=== PATIENT | female | born 1945 | race Caucasian/White ===

== ENCOUNTER 2022-07-09 08:09 | Day surgery (SDC) | payer MEDICARE ==
[~2022-07-09 08:09] MED LIST: LACTATED RINGERS 1,000 ML IV SCH
[2022-07-09 08:49] LABS: Glucose,Whole Blood 81 mg/dL (70-110)
[2022-07-09 08:55] VITALS: TEMP 97.3
[2022-07-09] MEDS ORDERED: hydrALAZINE HCL 20 MG/ML 1 ML VIAL IVP ONE ×2 (08:58→08:59)
[2022-07-09] MEDS ORDERED: PROPOFOL 10 MG/ML 20 ML VIAL IV ONE (09:03)
[2022-07-09] MEDS ORDERED: LIDOCAINE 2% INJ 20 MG/ML (2 ML VIAL) ONE (09:03)
[2022-07-09] MEDS ORDERED: GLYCOPYRROLATE 0.2 MG/ML 2 ML VIAL ONE (09:03)
--- NOTE | 2022-07-09 09:29 | P.PCN ---
Date of Procedure: 07/09/22 Procedure(s) Performed: Brief history: Patient is a pleasant 77-year-old white female scheduled for an elective upper endoscopy as well as colonoscopy as a part of evaluation of Iron deficiency anemia and positive cologuard. She denies any abdominal pain, nausea vomiting. Complete of occasional constipation. No rectal bleeding or melena Procedure performed: Esophagogastroduodenoscopy biopsy Colonoscopy Preoperative diagnosis: Deficiency anemia/positive cologuard. Anesthesia: MAC Procedure: After informed consent was obtained from the patient was brought into the endoscopy unit and IV sedation was administered by anesthesia under continuous monitoring. Initially upper endoscopy was done. The Olympus GF 160 video endoscope was inserted inserted into the mouth and esophagus intubated without any difficulty and was gradually advanced into the stomach and duodenum and carefully examined. The bulb and second part of the duodenum appeared normal. Biopsies were done from the duodenum to rule out celiac disease. The scope was then withdrawn into the stomach adequately insufflated with air and upon careful examination the antrum had mild mottling of the mucosa and biopsies were done from this area. Mucosa of the body, cardia and fundus appeared normal. The scope was then withdrawn into the esophagus. The GE junction was located at 40 cm to the incisors. It appeared regular with no erythema erosions or ulcerations. Rest of the esophagus appeared normal. Patient tolerated the procedure well. At this time the patient continued to remain sedation. Initial digital rectal examination was normal. Olympus CF 160 video colonoscope was then inserted into the rectum and gradually advanced to the cecum without any difficulty. Careful examination was performed as the scope was gradually being withdrawn. The prep was excellent. The cecum appeared normal. In the ascending colon there was a 5 mm polyp that was removed by cold biopsy. Rest of the, ascending colon, transverse colon, descending colon, sigmoid colon and rectum appeared normal. Scattered left sided diverticulosis seen. Retroflexion was performed in the rectum and no lesions were noted. Patient tolerated the procedure well. Impression: 1. Upper endoscopy revealed mild antral gastritis but no evidence of esophagitis or peptic ulcer disease 2. Colonoscopy revealed a 5 mm ascending colon polyp status post cold biopsy and scattered diverticulosis Recommendations: Findings of this examination were discussed with the patient as well as her family. She was advised to follow with the biopsy results. If the biopsy reveals adenoma she can have a repeat colonoscopy in 5 years.
[2022-07-09 09:49] VITALS: RESP 16
[2022-07-09 10:13] VITALS: BP 129/73; PULSE 85
== END 2022-07-09 10:30 | disposition home or self-care (01) ==
LOC: ORWHC2ENDO 08:09
PROVIDERS: ATTEND Internal Medicine Gastroenterology
DX: K29.50 Unspecified chronic gastritis without bleeding (principal); D12.2 Benign neoplasm of ascending colon; K57.30 Diverticulosis of large intestine without perforation or abscess without bleeding; D64.9 Anemia, unspecified; I10 Essential (primary) hypertension; E78.5 Hyperlipidemia, unspecified; E11.9 Type 2 diabetes mellitus without complications; K21.9 Gastro-esophageal reflux disease without esophagitis; F41.9 Anxiety disorder, unspecified; Z79.84 Long term (current) use of oral hypoglycemic drugs; Z79.899 Other long term (current) drug therapy; Z90.710 Acquired absence of both cervix and uterus; Z98.890 Other specified postprocedural states
CPT/HCPCS: 88305; 45380; 43239; J0360; J2704; J2001

== ENCOUNTER → 2024-05-30 | Outpatient (CLI) | payer MEDICARE ==
--- NOTE | 2024-05-30 15:04 | BD ---
EXAMINATION TYPE: Axial Bone Density DATE OF EXAM: 05/30/2024 CLINICAL HISTORY: 79 years old Female. ICD-10 CODE: M81.0 Osteoporosis , Additional History: Height: 60 Weight: 140 FRAX RISK QUESTIONS: Secondary Osteoporosis: yes 3. Menopause before 45: yes, before 46 Current Tobacco Use: yes recently RISK FACTORS HISTORY OF: anxiety, diabetes, reflux MEDICATIONS: bp meds, vit d, metformin, xanax prn, Zetia, reflux meds, EXAM MEASUREMENTS: Bone mineral densitometry was performed using the [employer]. Bone mineral density as measured about the Lumbar spine is: ----- L1-L4(G/cm2): 1.406 T Score Values are as follows: ----- L1: 1.6 ----- L2: 1.5 ----- L3: 2.0 ----- L4: 2.2 ----- L1-L4: 1.9 Z Score Values are as follows: ----- L1: 3.4 ----- L2: 3.4 ----- L3: 3.8 ----- L4: 4.0 ----- L1-L4: 3.7 Bone mineral density is the first study for this patient. Bone mineral density about the R hip (g/cm2): 0.972 Bone mineral density about the L hip (g/cm2): 1.006 T Score values are as follows: -----R Neck: -0.7 -----L Neck: -0.3 -----R Total: -0.3 -----L Total: 0.0 Z Score values are as follows: -----R Neck: 1.4 -----L Neck: 1.8 -----R Total: 1.7 -----L Total: 1.9 Bone mineral density is a baseline study for this patient. FRAX%s: The graph provided illustrates a 10.3% chance for a major osteoporotic fx and a 2.7% chance f or the hips probability for fx in 10 years time. IMPRESSION: Normal (Values between +1 and -1 indicate normal bone mass). Consider repeating this study in 5 year s or sooner if there is some new clinical indication. NOTE: T-SCORE=SD OF THE YOUNG ADULT MEAN. [facility], , 05/30/2024 3:01 PM
== END | disposition home or self-care (01) ==
LOC: RADBDWWP 12:59
PROVIDERS: ATTEND Internal Medicine Geriatric Medicine
DX: M81.0 Age-related osteoporosis without current pathological fracture (principal); M85.89 Other specified disorders of bone density and structure, multiple sites
CPT/HCPCS: 77080